=== PATIENT | male | born 1990 | race African-American/Black ===

== ENCOUNTER 2020-12-28 04:15 | Emergency (ER) | payer OTHER ==
[~2020-12-28] VITALS: Ht 177.8 cm; Wt 92.0 kg
[2020-12-28] MEDS ORDERED: KETOROLAC TROMETHAMINE 30 MG/ML VIAL IM ONE (05:00)
[2020-12-28] MEDS ORDERED: PERTUSS(ACELL),DIPH,TET VAC/PF 0.5 ML VIAL IM ONE (05:00)
[2020-12-28 06:46] VITALS: BP 124/73
== END 2020-12-28 06:52 | disposition home or self-care (01) ==
LOC: EMS 04:18
DX: S70.02XA Contusion of left hip, initial encounter (principal); S70.12XA Contusion of left thigh, initial encounter; W17.89XA Other fall from one level to another, initial encounter; Y93.39 Activity, other involving climbing, rappelling and jumping off; Y92.89 Other specified places as the place of occurrence of the external cause; Y99.8 Other external cause status
CPT/HCPCS: 72170; 73552; 90471; 90715; 96372; 99284; J1885